=== PATIENT | female | born 1965 | race Caucasian/White ===

== ENCOUNTER 2016-11-09 04:58 | Inpatient (IN) | payer OTHER ==
[2016-10-24 13:02] VITALS: BMI 41.0
[2016-10-24 13:13] LABS: BASO % 0.8 %; BASO ABS # 0.05 K/uL (0-0.2); COMPLETE YES; EOS % 2.3 %; HEMATOCRIT 40.5 % (37-47); IG% 0.3 %; LYMPH % 32.8 %; LYMPH ABS # 2.15 K/uL (1.2-3.4); MEAN CELL VOLUME 86.9 fL (80-100); MEAN CORPUSCULAR HEMOGLOBIN 29.2 pg (25-34); MEAN CORPUSCULAR HGB CONC 33.6 g/dl (32-36); MEAN PLATELET VOLUME 12.7 fL (7.4-10.4); MONO % 5.2 %; NEUT % 58.6 %; PLATELET COUNT 222 K/uL (130-400); RED BLOOD COUNT 4.66 M/uL (4.2-5.4); WHITE BLOOD COUNT 6.55 K/uL (4.8-10.8)
[2016-10-24 13:26] LABS: INR 0.9 (0.9-1.1); PARTIAL THROMBOPLASTIN RATIO 1.1; PROTHROMBIN TIME (PATIENT) 10.1 SECONDS (9.0-12.0)
[2016-10-24 13:29] LABS: ESTIMATED AVERAGE GLUCOSE 117 mg/dl; HA1C FLAG Normal (Normal)
--- NOTE | 2016-10-24 13:36 | PAT Medication Instructions ---
Service Date Oct 24, 2016. Current Home Medication List Ascorbic Acid (Vitamin C), 1 TAB PO QAM Cholecalciferol (Vitamin D3), 1 TAB PO QAM Cyanocobalamin (Vitamin B12), 1 DROP SL QAM Ibuprofen (Motrin), 400 MG PO Q6H PRN for Pain Interferon Beta-1A (Avonex), 1 DOSE SQ MONDAY Tocopheryl Acet,Dl-Alpha (Vitamin E), 1 CAP PO QAM Medication Instructions For Your Scheduled Surgery - Continue as directed: Interferon Beta-1A (Avonex), 1 DOSE SQ MONDAY - Hold the following medications 2 weeks prior to surgery: Tocopheryl Acet,Dl-Alpha (Vitamin E), 1 CAP PO QAM - Hold the following medications 1 week prior to surgery per surgeon's instructions: Ibuprofen (Motrin), 400 MG PO Q6H PRN for Pain - Hold the following medications the morning of surgery: Ascorbic Acid (Vitamin C), 1 TAB PO QAM Cholecalciferol (Vitamin D3), 1 TAB PO QAM Cyanocobalamin (Vitamin B12), 1 DROP SL QAM *Nothing to eat or drink after midnight* If you have any questions please call us at [phone] (Alicia Bryan PA-C) or [phone] or [phone]
[2016-10-24 13:41] LABS: BUN/CREATININE RATIO 27.1 (10-20); CALCIUM 8.7 mg/dl (8.5-10.1); CREATININE 0.68 mg/dl (0.60-1.20); POTASSIUM 3.9 mmol/L (3.5-5.1)
--- NOTE | 2016-10-24 14:17 | DIAGNOSTIC IMAGING REPORT ---
CHEST 2 VIEWS ROUTINE CLINICAL HISTORY: Preoperative evaluation. COMPARISON STUDY: No previous studies for comparison. FINDINGS: Lung volumes are normal. No pneumothorax or pleural effusion is present. Minimal left basilar opacity likely reflects atelectasis or epicardial fat pad. Cardiac size is normal. Mediastinal contours are normal. IMPRESSION: No acute cardiopulmonary findings. Electronically signed by: Ramiro Brink M.D. 10/24/2016 2:15 PM Dictated Date/Time: 10/24/2016 2:14 PM
--- NOTE | 2016-11-08 13:44 | HISTORY & PHYSICAL EXAMINATION ---
DATE OF ADMISSION: 11/09/2016 CHIEF COMPLAINT: Chronic right knee pain. HISTORY OF PRESENT ILLNESS: This is a 51-year-old female patient of Dr. Diamond who is complaining of chronic right knee pain, longstanding, now progressively getting worse. She has been diagnosed with end-stage osteoarthritis and has failed conservative treatment including anti-inflammatories and the use of a walker. The patient has increased pain with weightbearing activities and her pain does interfere with her activities of daily living. PAST MEDICAL HISTORY: She has snoring with no diagnosis of sleep apnea, carpal tunnel, multiple sclerosis, osteoarthritis, spine problems, neck problems, sciatica, obesity and a recent diagnosis of urinary tract infection. SOCIAL HISTORY: Nonsmoker, nondrinker. SURGICAL HISTORY: Right knee surgery x2, hernia surgery, tubal ligation, tonsillectomy. FAMILY HISTORY: Noncontributory. REVIEW OF SYSTEMS: The patient complains of chronic right knee pain, otherwise denies any shortness of breath, chest pain, nausea, vomiting or any other joint complaints. MEDICATIONS: Avonex with albumin 30 mcg IM injections every week, vitamin C 500 mg daily, vitamin B12 sublingual daily, vitamin D3 daily, vitamin E daily, ibuprofen 800 mg b.i.d. Cipro 500mg BID. ALLERGIES: INCLUDES SULFA. PHYSICAL EXAMINATION: GENERAL: Well-developed, well-nourished 51-year-old female patient of Dr. Diamond. She is alert and oriented x3 and pleasant. HEENT: Normocephalic, atraumatic. Extraocular motions are intact. Pupils are equal and reactive to light. HEART: Regular rate and rhythm, no murmurs. LUNGS: Clear. ABDOMEN: Soft and nontender. Bowel sounds present. EXTREMITIES: Right knee reveals a valgus deformity. She has lateral joint line tenderness and a limited range of motion of 0-110 degrees. She has a mild effusion. NEUROLOGIC: Neurovascularly, she is intact in her right lower extremity with 5/5 strength. DIAGNOSES: Right knee end-stage osteoarthritis, carpal tunnel syndrome, multiple sclerosis, osteoarthritis, spine problems, neck problems, sciatica, obesity. PLAN: The patient was advised of her diagnoses. Indications, risks, benefits, and postop course have all been reviewed. The patient wishes to proceed with a right total knee arthroplasty. Necessary consent form, preoperative testing and clearances will be obtained. LUCAS
[2016-11-09] VITALS (10 sets, daily range): BP systolic 96–143; BP diastolic 62–82; PULSE 66–82; TEMP 36.3–36.7; O2SAT 93–100; Ht 160 cm; Wt 107.2 kg
[~2016-11-09] VITALS: Ht 160 cm; Wt 107.2 kg
[~2016-11-09 04:58] MED LIST: ASCA500 PO; CHOL1000 PO; CYAN1DRO SL; IBUP-1459 PO; INTE1KIT3 SQ; VTME100 PO
[2016-11-09] MEDS ORDERED: CIPR1TAB11 PO (05:55)
[2016-11-09] MEDS ORDERED: DEXAMETHASONE 4 MG TAB PO SCH (06:00)
[2016-11-09] MEDS ORDERED: ACETAMINOPHEN 500 MG TAB PO SCH (06:00)
[2016-11-09] MEDS ORDERED: CEFAZOLIN 2000 MG/60 ML D5W 60 ML IV SCH (06:00)
[2016-11-09] MEDS ORDERED: METOCLOPRAMIDE HCL 10 MG TAB PO SCH (06:00)
[2016-11-09] MEDS ORDERED: LACTATED RINGER'S 1000ML IV SCH (06:00)
[2016-11-09] MEDS ORDERED: ROPIVACAINE 5MG/ML 30 ML 150 MG, BUPIVACAINE/EPINEPHR 0.5% MPF 30 ML, KETOROLAC TROMETH... INFIL SCH ×7 (06:00)
[2016-11-09] MEDS ORDERED: FAMOTIDINE 20 MG TAB PO SCH (06:00)
[2016-11-09] MEDS ORDERED: GABAPENTIN 300 MG CAP PO SCH (06:00)
[2016-11-09] MEDS ORDERED: FENTANYL CITRATE INJ 50 MCG/1 ML 2 ML VIAL ONE ×4 (06:25→09:55)
[2016-11-09] MEDS ORDERED: MIDAZOLAM HCL 1 MG/ML 2ML VIAL ONE (06:25)
[2016-11-09] MEDS ORDERED: PROPOFOL IV EMULSION 10 MG/ML 20 ML VIAL IV ONE ×2 (06:25→08:04)
[2016-11-09] MEDS ORDERED: BUPIVACAINE 0.5 % 5 MG/1 ML PF 10ML VIAL ONE ×2 (06:31→06:51)
[2016-11-09] MEDS ORDERED: BUPIVACAINE 0.25% 30 ML VIAL ONE (06:52)
[2016-11-09] MEDS ORDERED: ORTHO JOINT ANESTHETIC ONE (06:56)
--- NOTE | 2016-11-09 07:10 | History & Physical Bridge Note ---
H&P Re-Evaluation Bridge Note: I have examined the patient, reviewed the History & Physical and in the interval since the performance of the History & Physical I have noted the following changes of clinical significance: No changes noted
[2016-11-09] MEDS ORDERED: DEXAMETHASONE SOD INJ 4 MG/ML VIAL ONE (07:28)
[2016-11-09] MEDS ORDERED: ONDANSETRON INJ 2 MG/ML 2 ML VIAL ONE (07:28)
[2016-11-09] MEDS ORDERED: HYDROmorphone INJ 2 MG/ML SYR/VIAL ONE (07:29)
[2016-11-09] MEDS ORDERED: ALBUTEROL HFA INHALER 8.5 GM INH ONE (08:36)
[2016-11-09] MEDS ORDERED: POVIDONE-IODINE OP SOLN 30 ML BTL TOP ONE (08:44)
[2016-11-09] MEDS ORDERED: BACITRACIN 50000 UNIT VIAL IR ONE (08:44)
--- NOTE | 2016-11-09 09:02 | [facility] Operative Report ---
Operative Report Operative Date Nov 09, 2016. Pre-Operative Diagnosis Right Knee End Stage Osteoarthritis Post-Operative Diagnosis same Procedure(s) Performed right total knee replacement Surgeon Dr. Jake Diamond Plate Stacker Hand Surgeon(s) Narayan Murray PA-C Estimated Blood Loss 5ml Findings tricompartmental djd s/p meniscectomies and grade 4 lateral Specimens A. Right Knee Bone and Tissue Drains 2 hemovac Anesthesia general orthomix Complication(s) None Disposition Recovery Room / PACU Indications end stage oa I attest to the content of the Intraoperative Record and any orders documented therein. Any exceptions are noted below.
[2016-11-09] MEDS ORDERED: ZOLPIDEM TARTRATE 5 MG TAB PO PRN (09:30)
[2016-11-09] MEDS ORDERED: TRAMADOL HCL 50 MG TAB PO PRN (09:30)
[2016-11-09] MEDS ORDERED: MAGNESIUM HYDROXIDE SUSP 30 ML UDC PO PRN (09:30)
[2016-11-09] MEDS ORDERED: EpHEDrine SULFATE INJ 50 MG/ML AMP IV PRN (09:30)
[2016-11-09] MEDS ORDERED: MoRPHine SULFATE 10 MG/ML CARP/VIAL IV PRN (09:30)
[2016-11-09] MEDS ORDERED: FENTANYL CITRATE INJ 50 MCG/1 ML 2 ML VIAL IV PRN (09:30)
[2016-11-09] MEDS ORDERED: ONDANSETRON INJ 2 MG/ML 2 ML VIAL IV PRN ×2 (09:30)
[2016-11-09] MEDS ORDERED: BISACODYL 10 MG SUPP PR PRN (09:30)
[2016-11-09] MEDS ORDERED: ATROPINE SULFATE 0.1 MG/ML 5ML SYR IV PRN (09:30)
[2016-11-09] MEDS ORDERED: SOD PHOSPHATE/SOD BIPHOSPHATE ENEMA 132 ML BTL PR PRN (09:30)
[2016-11-09] MEDS ORDERED: MoRPHine SULFATE 2 MG/ML CARP IV PRN (09:30)
--- NOTE | 2016-11-09 09:52 | DIAGNOSTIC IMAGING REPORT ---
RIGHT KNEE 1 OR 2 VIEWS ROUTINE CLINICAL HISTORY: Arthroplasty. COMPARISON: None FINDINGS: Alignment of the total right knee arthroplasty is anatomic. There is no fracture or unexpected radiopaque foreign body. Drains and skin chani are present. IMPRESSION: Expected findings following total right knee arthroplasty. Electronically signed by: Ramiro Brink M.D. 11/09/2016 9:50 AM Dictated Date/Time: 11/09/2016 9:50 AM
--- NOTE | 2016-11-09 10:12 | Anesthesiology Progress Note ---
Anesthesia Post Op Note Date & Time Nov 09, 2016 at 10:11 Vital Signs Pain Intensity: 2 Vital Signs Past 12 Hours Date Time Temp Pulse Resp B/P Pulse Ox O2 Delivery O2 Flow Rate FiO2 11/09/16 10:01 36.6 17 131/78 99 Mask 10 11/09/16 09:54 77 14 99 11/09/16 09:54 74 14 11/09/16 09:53 129/83 11/09/16 09:49 80 14 97 11/09/16 09:49 80 14 11/09/16 09:48 130/83 11/09/16 09:44 84 15 11/09/16 09:44 85 15 100 11/09/16 09:43 146/84 11/09/16 09:39 78 14 100 11/09/16 09:39 77 14 11/09/16 09:38 152/78 11/09/16 09:35 73 14 100 11/09/16 09:35 73 14 11/09/16 09:33 146/81 11/09/16 09:30 86 17 100 11/09/16 09:30 84 17 11/09/16 09:28 157/95 11/09/16 09:25 88 17 11/09/16 09:25 87 17 100 11/09/16 09:25 36.6 91 16 149/94 97 Mask 10 11/09/16 06:19 36.3 71 20 143/69 100 Room Air Notes Mental Status: alert / awake / arousable, participated in evaluation Pt Amnestic to Procedure: Yes Nausea / Vomiting: adequately controlled Pain: adequately controlled Airway Patency, RR, SpO2: stable & adequate BP & HR: stable & adequate Hydration State: stable & adequate Anesthetic Complications: no major complications apparent
[2016-11-09] MEDS: TRANEXAMIC ACID INJ 1,000 MG in SODIUM CHLORIDE 0.9% 100ML 100 ML IV SCH ×2 (11:44→11:45)
[2016-11-09] MEDS ORDERED: MoRPHine SULFATE 4 MG/ML 1 ML CARP\\VIAL ONE (11:47)
[2016-11-09] MEDS: D5W AND 1/2NSS + 20MEQ KCL 1,000 ML IV SCH ×2 (12:16→22:36)
[2016-11-09] MEDS ORDERED: MoRPHine SULFATE 4 MG/ML 1 ML CARP\\VIAL IV PRN (12:30)
[2016-11-09] MEDS ORDERED: CYANOCOBALAMIN SCH (13:00)
--- NOTE | 2016-11-09 13:33 | Medical Consult ---
History General Date of Service: Nov 09, 2016. Stated Complaint: Right Knee Degenerative Joint Disease HPI The patient is a 51 year old female who presents to [facility] with complaints of Right Knee pain . The patient's primary care provider is Mariana Grimaldo. underwent elective rt knee surgery today 11/09/16 pt's past medical hx significant for Multiple sclerosis , Diagnosed approx 2 yrs back , follow with [facility] Neurology Dr Angelia Buckner receives Interferon Beta A1 ( Avenox ) once a week IM has been having long standing pain in rt knee affecting her ADL's had pre op eval done by her Family Physician on 10/26/16 was found to be cleared /medically stable for surgery pt seen at post op in room 353, a bit groggy -got IV morphine earlier for knee pain no complain of SOB or chest discomfort , no fever or chills pt denies of any urinary symptom of dysuria /has chronic incontinence for MS pain in rt knee post op site resolved after IV Morphine Historian: patient Quality of Pain: dull Review of Systems Constitutional: reports: as stated in HPI Cardiovascular: denies: as stated in HPI, chest pain, chest pressure, chest tightness, diaphoresis, edema, intermittent claudication, no symptoms, orthopnea , other, palpitations, syncope Respiratory: denies: MARROQUIN, PND, as stated in HPI, cough, cyanosis, hemoptysis, no symptoms, orthopnea, other, shortness of breath, sputum production, stridor, wheezing Gastrointestinal: denies: abdominal pain, anorexia, appetite changes, as stated in HPI, belching, constipation, diarrhea, flatulence, food intolerance, hematemesis, hematochezia, hemorrhoids, jaundice, nausea, no symptoms, other, stool changes, vomiting Genitourinary - Female: reports: urinary incontinence (chonic ) Musculoskeletal: reports: other (rt knee pain s/p rt TKA ) Neurologic: reports: other (multiple screlosis ) All Other Symptoms All Other Systems: Reviewed and Negative Past Medical History Past Medical History: MULTIPLE SCLEROSIS CHRONIC URINARY INCONTINENCE DUE TO ABOVE DYSLIPIDEMIA Past Surgical History: COLONOSCOPY, DIAGNOSTIC (RECTUM) N/A 12/14/2015 normal, 10 yr recall, COLONOSCOPY FLEXIBLE PROXIMAL DIAGNOSTIC performed by Anupam Brar MD at [facility]; CHOLECYSTECTOMY 1995 LIGATE/CUT OVIDUCT(S) 1986 Tubal Ligation REMOVAL OF TONSILS, AGE 12+ 1992 Tonsils Removal,10+ Y/O REPAIR OF KNEE CARTILAGE age 7 and 11 URETHRAL DILAT W/SUPP/INSTILL,FEMALE, MD/ age 12 Family History Heart Disorder Mother Murmur Heart Disorder Paternal Grandfather [place] 60's Hypertension Father Hypertension Maternal Grandmother from CVA at 83 Hypertension Mother Neurological Disorder Maternal Grandfather Alzheimers Parent: Hypertension, Grandparent: Heart Disease Social History Hx Tobacco Use In Past Year?: No Smoking Status: Never Smoker Alcohol: never Drug Use: none Marital status: Housing status: lives with family 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 pt 'prefers not to receive sulfa drugs' Current Medications Reported Home Medications Medications Dose Route/Sig Max Daily Dose Days Date Category Cipro (Ciprofloxacin) 250 Mg Tab 500 Mg PO BID 7 11/09/16 Reported Motrin (Ibuprofen) 400 Mg Tab 400 Mg PO Q6H PRN 10/24/16 Reported Avonex (Interferon Beta-1A) 30 Mcg/Vial Kit 1 Dose SQ Monday10/24/16 Reported Vitamin B12 (Cyanocobalamin) 3,000 Mcg/Ml Carlos Enrique 1 Drop SL QAM 10/24/16 Reported Vitamin E (Tocopheryl Acet,Dl-Alpha) 100 Interunit Cap 1 Cap PO QAM 10/24/16 Reported Vitamin D3 (Cholecalciferol) 1,000 Unit Tab 1 Tab PO QAM 90 10/24/16 Reported Vitamin C (Ascorbic Acid) 500 Mg Tab 1 Tab PO QAM 10/24/16 Reported Physical Physical Exam Vital Signs: Date Time Temp Pulse Resp B/P Pulse Ox O2 Delivery O2 Flow Rate FiO2 11/09/16 13:05 82 16 96/62 94 Nasal Cannula 2.0 11/09/16 12:05 74 16 112/67 99 Nasal Cannula 2.0 11/09/16 11:35 68 16 110/72 99 Nasal Cannula 2.0 11/09/16 11:05 Nasal Cannula 2.0 11/09/16 11:05 Nasal Cannula 2.0 11/09/16 11:05 36.3 79 16 118/82 95 Nasal Cannula 2.0 11/09/16 10:43 127/78 11/09/16 10:41 73 19 98 11/09/16 10:41 73 19 11/09/16 10:38 134/80 11/09/16 10:36 79 16 11/09/16 10:36 80 16 98 11/09/16 10:35 79 14 97 11/09/16 10:35 80 14 11/09/16 10:33 128/82 11/09/16 10:30 77 14 99 11/09/16 10:30 78 14 11/09/16 10:28 121/99 11/09/16 10:25 86 24 11/09/16 10:25 86 24 98 11/09/16 10:23 130/86 11/09/16 10:20 72 17 11/09/16 10:20 72 17 99 11/09/16 10:18 127/77 11/09/16 10:15 74 17 98 11/09/16 10:15 76 17 11/09/16 10:13 135/79 11/09/16 10:10 78 14 98 11/09/16 10:10 77 14 11/09/16 10:08 132/79 11/09/16 10:05 85 20 99 11/09/16 10:05 85 20 11/09/16 10:03 131/78 11/09/16 10:01 36.6 17 131/78 99 Mask 10 11/09/16 10:00 77 15 98 11/09/16 10:00 77 15 11/09/16 09:58 130/72 11/09/16 09:55 78 13 11/09/16 09:55 77 13 96 11/09/16 09:54 77 14 99 11/09/16 09:54 74 14 11/09/16 09:53 129/83 11/09/16 09:49 80 14 97 11/09/16 09:49 80 14 11/09/16 09:48 130/83 11/09/16 09:44 84 15 11/09/16 09:44 85 15 100 11/09/16 09:43 146/84 11/09/16 09:39 78 14 100 11/09/16 09:39 77 14 1/25/17 09:38 152/78 11/09/16 09:35 73 14 100 11/09/16 09:35 73 14 11/09/16 09:33 146/81 11/09/16 09:30 86 17 100 11/09/16 09:30 84 17 11/09/16 09:28 157/95 11/09/16 09:25 88 17 11/09/16 09:25 87 17 100 11/09/16 09:25 36.6 91 16 149/94 97 Mask 10 11/09/16 06:19 36.3 71 20 143/69 100 Room Air General Appearance: WELL-APPEARING, NO APPARENT DISTRESS Head: NORMOCEPHALIC, ATRAUMATIC Eyes: PERRLA, EOMI, SCLERAE NORMAL Neck: SUPPLE, NO THYROMEGALY Respiratory: BREATH SOUNDS NORMAL, CLEAR TO AUSCULTATION, NO RESPIRATORY DISTRESS Cardiovasular: REGULAR RATE/RHYTHM, NORMAL S1S2, NO MURMUR Abdomen: NON TENDER, NORMAL BOWEL SOUNDS Back: NORMAL INSPECTION Lower Extremities: other (S/P RT KNEE Tka , surgical bandage present, drain - with serosanguoinous drainage ) Neuro: ALERT, ORIENTED x 3 Psychiatric: NORMAL AFFECT Diagnostics Labs Results Past 24 Hours Test 11/09/16 13:03 Range/Units Diagnostic Radiology RIGHT KNEE 1 OR 2 VIEWS ROUTINE CLINICAL HISTORY: Arthroplasty. COMPARISON: None FINDINGS: Alignment of the total right knee arthroplasty is anatomic. There is no fracture or unexpected radiopaque foreign body. Drains and skin chani are present. IMPRESSION: Expected findings following total right knee arthroplasty. Impression Assessment and Plan 51 yo F with hx of MS , dyslipidemia -underwent rt TKA of chronic DJD , intractable pain RT TKA : -s/p elective rt TKA for chronic DJD POD # 0 pt recovering well post op rt knee post op pain appears to be well controlled with current pain regimen cont PT/OT as per ortho CBC , PRP should be checked in AM to eval for acute blood loss anemia , dehydration due to surgical vol loss ordered already RECENT UTI WITH KLEBSIELLA urine culture on [facility] as per Pre op on 10/31/16 grew Klebsiella Pneumoniae sensitive to Cipro Resistant to Amoxicillin REPORT STATUS 10/31/2016 FINAL Final ORGANISM KLEBSIELLA PNEUMONIAE (A) Final Culture & Susceptibility Antibiotic Organism Organism Organism Klebsiella pneumoniae AMPICILLIN RESISTANT R Final AMPICILLIN/SULBACTAM SUSCEPTIBLE S Final CEFEPIME SUSCEPTIBLE S Final CEFTRIAXONE SUSCEPTIBLE S Final CIPROFLOXACIN SUSCEPTIBLE S Final GENTAMICIN SUSCEPTIBLE S Final NITROFURANTOIN INTERMEDIATE I Final PIPERACILLIN TAZOBACTAM SUSCEPTIBLE S Final TRIMETH-SULFAMETHOXAZOLE SUSCEPTIBLE S Final pt started on Treatment with Cipro 500 mg PO BID started form yesterday has chronic urinary incontinence for MS given lack for other symptoms , no fever , white count would treat as uncomplicated UTI treat with PO cipro for 5 -7 days -already ordered repeat UA and culture if indicated ordered MULTIPLE SCLEROSIS follows with Neurology on Avenox IM weekly no acute issue cont out pt Neurology follow up DYSLIPIDEMIA : diet controlled follows with PCP FULL CODE Thank you for allowing us to participate in care will follow the pt during her hospital course Dr Morris will follow the pt from tomorrow 11/10/16 Admit To Med/Surg Code Status Level 1 - Full Code
[2016-11-09] MEDS: CYANOCOBALAMIN SCH ×2 (16:00→22:16)
[2016-11-09] MEDS: ACETAMINOPHEN 500 MG TAB PO SCH ×2 (16:03→23:55)
[2016-11-09] MEDS: CEFAZOLIN IV 2,000 MG in DEXTROSE 5% 50ML 50 ML IV SCH (18:20)
[2016-11-09] MEDS: RIVAROXABAN 10 MG TAB PO SCH (18:20)
[2016-11-09 18:48] LABS: URINE APPEARANCE CLEAR (CLEAR); URINE BILIRUBIN NEG (NEG); URINE COLOR YELLOW; URINE EPITHELIAL CELL AUTO >30 /lpf (0-5); URINE NITRITE POS (NEG); URINE SPECIFIC GRAVITY 1.014 (1.000-1.030); UROBILINOGEN NEG (NEG); ZZUR CULT IF INDIC CLEAN CATCH NO
[2016-11-09 18:51] LABS: MANUAL MICROSCOPIC REQUIRED? NO; REVIEW REQ? NO
[2016-11-09] MEDS: OXYCODONE HCL IR 5 MG TAB (IMMEDIATE RELEASE) PO PRN (19:54)
[2016-11-09] MEDS: CIPROFLOXACIN 250 MG TAB PO SCH (20:35)
[2016-11-09] MEDS: DOCUSATE SODIUM 100 MG CAP PO SCH (20:35)
[2016-11-09] MEDS: OXYCODONE HCL 10 MG TABCR (OXYCONTIN) PO SCH (20:37)
--- NOTE | 2016-11-09 22:47 | OPERATIVE REPORT ---
DATE OF OPERATION: 11/09/2016 INDICATION FOR PROCEDURE: The patient is a 51-year-old female with chronic progressive right knee osteoarthritis. She has had previous open meniscectomy procedures in the past, years ago. She has had progressive osteoarthritis and pain and dysfunction, now presents for knee replacement surgery. PREOPERATIVE DIAGNOSIS: End-stage osteoarthritis, right knee. POSTOPERATIVE DIAGNOSIS: Same. PROCEDURE: Right total knee arthroplasty. SURGEON: Dr. Diamond. BOOTS AND SHOES SUPERVISOR: Narayan Murray PA-C. ANESTHESIA: General and Orthomix. OPERATIVE PROCEDURE: The patient was taken to the operating room, had general anesthetic placed, and then she had a pneumatic tourniquet placed about her right upper thigh and her right lower extremity was prepped and draped with ChloraPrep in usual sterile fashion. Knee exam demonstrates she had 0-120 degrees range of motion and she had a little bit more of a valgus knee and had crepitation with range of motion. Her radiographs demonstrated that she had tricompartmental DJD, most severe in the lateral compartment where she is bone on bone. The leg was elevated, exsanguinated with Esmarch bandage. Pneumatic tourniquet was raised to 300 mmHg. Anterior incision was made across the knee. Skin was incised sharply in a longitudinal fashion. The subcutaneous tissues were incised down to the fascia, subcutaneous bleeders were cauterized. Subcutaneous flaps were elevated. An incision was made in the medial retinaculum and extended up in the mid third of the quadriceps tendon and extended down to the medial tibial tubercle. Intraarticular findings demonstrated that the patient had tricompartmental DJD. Most of her wear was in the lateral compartment where she was clearly bone on bone. She had grade 3 changes throughout the other compartments and tricompartmental osteophytes. She had previous medial and lateral meniscectomies. I used the Willard \T\ Nephew Journey 2.0 total knee arthroplasty system using [employer] MRI templating. Attention was first taken to the exposure which required excision of the infrapatellar fat pad, excision of any remnants of the menisci which were small as they previously excised, the cruciate ligaments were excised, and the fat pad over the anterior femur for placement of the component in that area was resected. Lateral synovial bands were released. We did not have to do any significant ligamentous releases due to balanced ligaments. The custom femoral cutting block was pinned in position and distal femoral cut was made. The 5-in-1 cutting block was used for a size 5 femur. The anterior, posterior and chamfer cuts were made. The knee was then extended and subperiosteal peel lateral release was performed around the patella. Patella cut was made using freehand cut technique and patella width was reproduced using a 38 mm patellar component and the drill holes were made and the excess lateral facet was beveled off to prevent any impingement. The tibia was then exposed. The custom tibial cutting block was pinned in position and the proximal tibia cut was made. Lamina geothermal heat pump machinist was used to ensure ligamentous balance. All osteophytes were removed from the posterior condyles. At this time, the tibia was subluxed again and the 5 tibial baseplate was pinned in position, externally rotated to line up with the tibial tubercle. The punch for the stem was used. Then, the 5 femoral trial was inserted, centered, and the notch cutting devices were used. A collet was placed. A 15 poly insert gave balanced ligaments through full range of motion and patella tracked centrally. The trials were removed. The Orthomix anesthetic cocktail was injected per protocol. The knee was copiously irrigated with pulsatile lavage antibiotic solution and bacitracin. Final components were cemented with Simplex G cement. Final components were the 5 Oxinium posterior stabilized Willard \T\ Nephew Journey 2.0 femur, 5 tibial baseplate, 15 posterior stabilized poly insert and the 38 patella. While cement cured, the Betadine soak was used per protocol. Then, 2 drains were brought out laterally. The knee was copiously irrigated with antibiotic solution and bacitracin. The quadriceps tendon and medial retinaculum were closed with interrupted [id number] #1 Vicryl sutures. The knee was taken through range of motion and repair was secure. The subcutaneous tissue was then closed with interrupted 2-0 Vicryl and skin was closed with chani. Occlusive dressing was placed and the patient tolerated the procedure well. Narayan Murray PA-C, was my first breaker feeder, he functioned as first breaker feeder for the entire procedure. He assisted in soft tissue retraction, instrument management, leg positioning as needed, and he performed the fascial, subcutaneous and skin closure, and will participate in postop care of the patient. I attest to the content of the Intraoperative Record and any orders documented therein. Any exceptio ns are noted below.
[2016-11-10] MEDS: CEFAZOLIN IV 2,000 MG in DEXTROSE 5% 50ML 50 ML IV SCH (01:31)
[2016-11-10 04:35] VITALS: BP 107/72; PULSE 65; TEMP 36.6; O2SAT 97
[2016-11-10 06:01] LABS: HEMATOCRIT 33.5 % (37-47); MEAN CELL VOLUME 87.7 fL (80-100); MEAN CORPUSCULAR HEMOGLOBIN 29.3 pg (25-34); MEAN CORPUSCULAR HGB CONC 33.4 g/dl (32-36); MEAN PLATELET VOLUME 12.3 fL (7.4-10.4); PLATELET COUNT 250 K/uL (130-400); RED BLOOD COUNT 3.82 M/uL (4.2-5.4); WHITE BLOOD COUNT 16.94 K/uL (4.8-10.8)
[2016-11-10 06:27] LABS: BUN/CREATININE RATIO 14.3 (10-20); CALCIUM 8.5 mg/dl (8.5-10.1); POTASSIUM 4.2 mmol/L (3.5-5.1)
[2016-11-10 07:20] VITALS: BP 96/66; PULSE 57; TEMP 36.6; O2SAT 98
[2016-11-10] MEDS: CYANOCOBALAMIN SCH ×3 (07:50→22:54)
[2016-11-10] MEDS: D5W AND 1/2NSS + 20MEQ KCL 1,000 ML IV SCH (07:52)
[2016-11-10] MEDS: ACETAMINOPHEN 500 MG TAB PO SCH ×2 (07:52→15:37)
--- NOTE | 2016-11-10 08:00 | Orthopedic Progress Note ---
Orthopedic Progress Note Date of Service Nov 10, 2016. Subjective Post OP Day: 1 Reports: feeling well, pain controlled w PO medications, Denies: SOB, calf pain , chest pain, complaints, light headedness, nausea / vomiting Objective calves soft nontender, N/V intact, capillary refill less than 2 sec., dressing C /D/I, A&O x3, toes mobile Date Time Temp Pulse Resp B/P Pulse Ox O2 Delivery O2 Flow Rate FiO2 11/10/16 07:20 36.6 57 16 96/66 98 Room Air 11/10/16 04:35 36.6 65 16 107/72 97 Room Air 11/09/16 23:44 36.7 66 16 109/62 93 Room Air 11/09/16 23:00 93 Room Air 11/09/16 19:08 36.4 81 16 118/75 93 Room Air 11/09/16 15:34 36.5 79 16 98/62 96 Nasal Cannula 2.0 11/09/16 15:30 Nasal Cannula 2.0 11/09/16 14:05 79 16 131/73 96 Nasal Cannula 2.0 11/09/16 13:05 82 16 96/62 94 Nasal Cannula 2.0 11/09/16 12:05 74 16 112/67 99 Nasal Cannula 2.0 11/09/16 11:35 68 16 110/72 99 Nasal Cannula 2.0 11/09/16 11:05 Nasal Cannula 2.0 11/09/16 11:05 Nasal Cannula 2.0 11/09/16 11:05 36.3 79 16 118/82 95 Nasal Cannula 2.0 11/09/16 10:43 127/78 11/09/16 10:41 73 19 98 11/09/16 10:41 73 19 11/09/16 10:38 134/80 11/09/16 10:36 79 16 11/09/16 10:36 80 16 98 11/09/16 10:35 79 14 97 11/09/16 10:35 80 14 11/09/16 10:33 128/82 11/09/16 10:30 77 14 99 11/09/16 10:30 78 14 11/09/16 10:28 121/99 11/09/16 10:25 86 24 11/09/16 10:25 86 24 98 11/09/16 10:23 130/86 11/09/16 10:20 72 17 11/09/16 10:20 72 17 99 11/09/16 10:18 127/77 11/09/16 10:15 74 17 98 11/09/16 10:15 76 17 11/09/16 10:13 135/79 11/09/16 10:10 78 14 98 11/09/16 10:10 77 14 11/09/16 10:08 132/79 11/09/16 10:05 85 20 99 11/09/16 10:05 85 20 11/09/16 10:03 131/78 11/09/16 10:01 36.6 17 131/78 99 Mask 10 11/09/16 10:00 77 15 98 11/09/16 10:00 77 15 11/09/16 09:58 130/72 11/09/16 09:55 78 13 11/09/16 09:55 77 13 96 11/09/16 09:54 77 14 99 11/09/16 09:54 74 14 11/09/16 09:53 129/83 11/09/16 09:49 80 14 97 11/09/16 09:49 80 14 11/09/16 09:48 130/83 11/09/16 09:44 84 15 11/09/16 09:44 85 15 100 11/09/16 09:43 146/84 11/09/16 09:39 78 14 100 11/09/16 09:39 77 14 11/09/16 09:38 152/78 11/09/16 09:35 73 14 100 11/09/16 09:35 73 14 11/09/16 09:33 146/81 11/09/16 09:30 86 17 100 11/09/16 09:30 84 17 11/09/16 09:28 157/95 11/09/16 09:25 88 17 11/09/16 09:25 87 17 100 11/09/16 09:25 36.6 91 16 149/94 97 Mask 10 Laboratory Results 24 Hours: Test 11/10/16 05:00 Hematocrit 33.5 % Hemoglobin 11.2 g/dL Assessment & Plan Assessment: POD #1, Rt TKA Plan: PT/ OT DVT proph- Xarelto D/C planning- SNF, [place] As per medicine. Inhouse Planning Pain Management: Oxycontin, Morphine, PO Tylenol, Oxy IR DVT Prophylaxis: TEDs, SCDs, Xarelto Discharge Planning Discharge Planning: [facility] facility Pain Management: Oxycontin, PO Tylenol, Oxy IR DVT Prophylaxis: TEDs, Xarelto Therapy: Physical Therapy, Occupational Therapy
[2016-11-10] MEDS: DOCUSATE SODIUM 100 MG CAP PO SCH ×2 (09:06→21:04)
[2016-11-10] MEDS: MULTIVITAMIN TAB PO SCH (09:06)
[2016-11-10] MEDS: ASCORBIC ACID 500 MG TAB PO SCH (09:06)
[2016-11-10] MEDS: TOCOPHERYL, DL-ALPHA 100 INTERUNIT CAP PO SCH (09:06)
[2016-11-10] MEDS: PANTOprazole SOD 40 MG TAB PO SCH (09:06)
[2016-11-10] MEDS: OXYCODONE HCL IR 5 MG TAB (IMMEDIATE RELEASE) PO PRN ×2 (09:06→18:53)
[2016-11-10] MEDS: OXYCODONE HCL 10 MG TABCR (OXYCONTIN) PO SCH ×2 (09:07→21:04)
[2016-11-10] MEDS: CIPROFLOXACIN 250 MG TAB PO SCH ×2 (09:07→21:04)
[2016-11-10] MEDS: CHOLECALCIFEROL 1000 INTER.UNIT TAB PO SCH (09:07)
--- NOTE | 2016-11-10 10:24 | Anesthesiology Progress Note ---
Anesthesia Post Op Note Date & Time Nov 10, 2016 at 10:24 Vital Signs Pain Intensity: 4.0 Vital Signs Past 12 Hours Date Time Temp Pulse Resp B/P Pulse Ox O2 Delivery O2 Flow Rate FiO2 11/10/16 07:40 Room Air 11/10/16 07:20 36.6 57 16 96/66 98 Room Air 11/10/16 04:35 36.6 65 16 107/72 97 Room Air 11/09/16 23:44 36.7 66 16 109/62 93 Room Air 11/09/16 23:00 93 Room Air Notes Mental Status: alert / awake / arousable, participated in evaluation Pt Amnestic to Procedure: Yes Nausea / Vomiting: adequately controlled Pain: adequately controlled Airway Patency, RR, SpO2: stable & adequate BP & HR: stable & adequate Hydration State: stable & adequate Anesthetic Complications: no major complications apparent
[2016-11-10 10:57] VITALS: BP 110/61; PULSE 79; TEMP 36.7; O2SAT 99
[2016-11-10 11:29] VITALS: BP 96/78
[2016-11-10 15:29] VITALS: BP 112/65; PULSE 84; TEMP 36.9; O2SAT 99
[2016-11-10 15:40] VITALS: O2SAT 99
--- NOTE | 2016-11-10 18:33 | Progress Note ---
Medicine Progress Note Date & Time of Visit: Nov 10, 2016 at 18:22. Subjective Patient seen and examined. Pain tolerable with current pain regimen. Objective Last 8 Hrs Date Time Temp Pulse Resp B/P Pulse Ox O2 Delivery O2 Flow Rate FiO2 11/10/16 15:29 36.9 84 18 112/65 99 Room Air 11/10/16 10:57 36.7 79 16 110/61 99 Room Air Physical Exam: General-awake; alert; NAD Eyes-EOMI; no scleral icterus Neck-no stridor; trachea midline Lungs-CTA anteriorly Heart-RRR; no m/r/g Abdomen-soft; NTND; nBS Extremities-right leg dressing c/d/i Neuro-no gross focal deficits Laboratory Results: Last 24 Hours Test 11/10/16 05:00 White Blood Count 16.94 K/uL Red Blood Count 3.82 M/uL Hemoglobin 11.2 g/dL Hematocrit 33.5 % Mean Corpuscular Volume 87.7 fL Mean Corpuscular Hemoglobin 29.3 pg Mean Corpuscular Hemoglobin Concent 33.4 g/dl RDW Standard Deviation 43.7 fL RDW Coefficient of Variation 13.7 % Platelet Count 250 K/uL Mean Platelet Volume 12.3 fL Sodium Level 141 mmol/L Potassium Level 4.2 mmol/L Chloride Level 106 mmol/L Carbon Dioxide Level 27 mmol/L Anion Gap 8.0 mmol/L Blood Urea Nitrogen 14 mg/dl Creatinine 1.00 mg/dl Est Creatinine Clear Calc Drug Dose 76.3 ml/min Estimated GFR () 74.5 Estimated GFR (Non- 64.3 BUN/Creatinine Ratio 14.3 Random Glucose 119 mg/dl Calcium Level 8.5 mg/dl Assessment & Plan 51 yo F with hx of MS, dyslipidemia -underwent right TKA Right TKA : - performed by Dr. 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 Current Inpatient Medications: Current Inpatient Medications Medications (Trade) Dose Ordered Sig/Crystal Route Start Time Stop Time Status Last Admin Dose Admin Ascorbic Acid (Vitamin C Tab) 500 mg QAM PO 11/10/16 09:00 2/25/17 08:59 11/10/16 09:06 500 MG Cholecalciferol (Vitamin D Tab) 1,000 inter.unit QAM PO 11/10/16 09:00 12/10/16 08:59 11/10/16 09:07 1,000 INTER.UNIT Ciprofloxacin (Ciprofloxacin Tab) 500 mg BID PO 11/09/16 21:00 11/14/16 20:59 11/10/16 09:07 500 MG pw-Etajg-Ovewrknlok Acetate (Vitamin E Cap) 100 interunit QAM PO 11/10/16 09:00 12/10/16 08:59 11/10/16 09:06 100 INTERUNIT Oxycodone HCl (Roxicodone Immediate Rel Tab) 1 TABLET FOR PAIN RATING... Q4H PRN PO 11/09/16 09:30 11/23/16 09:29 11/10/16 09:06 10 MG Oxycodone HCl (Oxycontin Tab) 10 mg Q12 PO 11/09/16 21:00 11/23/16 20:59 11/10/16 09:07 10 MG Morphine Sulfate (MoRPHine SULFATE INJ) 2 mg Q2H PRN IV 11/09/16 09:30 11/23/16 09:29 Acetaminophen (Tylenol Tab) 1,000 mg Q8H PO 11/09/16 16:00 12/09/16 15:59 11/10/16 15:37 1,000 MG Magnesium Hydroxide (Milk Of Magnesia Susp) 30 ml Q6H PRN PO 11/09/16 09:30 12/09/16 09:29 Bisacodyl (Dulcolax Supp) 10 mg DAILY PRN MA 11/09/16 09:30 12/09/16 09:29 Sodium Biphosphate/ Sodium Phosphate (Fleet Enema) 132 ml DAILY PRN MA 11/09/16 09:30 12/09/16 09:29 Docusate Sodium (coLACE CAP) 100 mg BID PO 11/09/16 21:00 12/09/16 20:59 11/10/16 09:06 100 MG Diphenhydramine HCl (Benadryl Cap) 25 mg Q8H PRN PO 11/09/16 09:30 12/09/16 09:29 Zolpidem Tartrate (Ambien Tab) 5 mg HSZ PRN PO 11/09/16 09:30 12/09/16 09:29 Multivitamins (Multivitamin Tab) 1 tab QAM PO 11/10/16 09:00 12/10/16 08:59 11/10/16 09:06 1 TAB Ondansetron HCl (Zofran Inj) 4 mg Q6H PRN IV 11/09/16 09:30 12/09/16 09:29 Pantoprazole Sodium (Protonix Tab) 40 mg QAM PO 11/10/16 09:00 12/10/16 08:59 11/10/16 09:06 40 MG Tramadol HCl (Ultram Tab) 1 tablet for pain rating... Q4H PRN PO 11/09/16 09:30 12/09/16 09:29 11/10/16 15:38 100 MG Rivaroxaban (Xarelto Tab) 10 mg Q24H PO 11/09/16 18:30 11/21/16 18:29 11/09/16 18:20 10 MG Morphine Sulfate (MoRPHine SULFATE INJ) 4 mg Q2H PRN IV 11/09/16 12:30 11/23/16 12:29 Miscellaneous Information (Order Awaiting Action) 1 ea QS N/A 11/09/16 16:00 12/09/16 12:59
[2016-11-10] MEDS: RIVAROXABAN 10 MG TAB PO SCH (18:38)
[2016-11-11 00:20] VITALS: BP 108/72; PULSE 86; TEMP 37.1; O2SAT 96
[2016-11-11] MEDS: OXYCODONE HCL IR 5 MG TAB (IMMEDIATE RELEASE) PO PRN ×4 (00:42→13:47)
[2016-11-11] MEDS: ACETAMINOPHEN 500 MG TAB PO SCH ×2 (00:43→08:40)
[2016-11-11 07:00] VITALS: BP 108/63; PULSE 89; TEMP 36.8; O2SAT 95
[2016-11-11 07:11] LABS: HEMATOCRIT 28.5 % (37-47); MEAN CELL VOLUME 88.2 fL (80-100); MEAN CORPUSCULAR HEMOGLOBIN 29.4 pg (25-34); MEAN CORPUSCULAR HGB CONC 33.3 g/dl (32-36); MEAN PLATELET VOLUME 12.3 fL (7.4-10.4); PLATELET COUNT 208 K/uL (130-400); RED BLOOD COUNT 3.23 M/uL (4.2-5.4); WHITE BLOOD COUNT 8.36 K/uL (4.8-10.8)
[2016-11-11 07:50] LABS: BUN/CREATININE RATIO 21.6 (10-20); CREATININE 0.88 mg/dl (0.60-1.20); POTASSIUM 4.1 mmol/L (3.5-5.1)
[2016-11-11] MEDS: CYANOCOBALAMIN SCH (08:00)
[2016-11-11] MEDS: CIPROFLOXACIN 250 MG TAB PO SCH (08:39)
[2016-11-11] MEDS: ASCORBIC ACID 500 MG TAB PO SCH (08:39)
[2016-11-11] MEDS: CHOLECALCIFEROL 1000 INTER.UNIT TAB PO SCH (08:39)
[2016-11-11] MEDS: PANTOprazole SOD 40 MG TAB PO SCH (08:39)
[2016-11-11] MEDS: TOCOPHERYL, DL-ALPHA 100 INTERUNIT CAP PO SCH (08:39)
[2016-11-11] MEDS: MULTIVITAMIN TAB PO SCH (08:39)
[2016-11-11] MEDS: DOCUSATE SODIUM 100 MG CAP PO SCH (08:40)
[2016-11-11] MEDS: OXYCODONE HCL 10 MG TABCR (OXYCONTIN) PO SCH (08:46)
--- NOTE | 2016-11-11 09:58 | Orthopedic Progress Note ---
Orthopedic Progress Note Date of Service Nov 11, 2016. Subjective Post OP Day: 2 Reports: feeling well, pain controlled w PO medications, Denies: SOB, calf pain , chest pain, complaints, light headedness, nausea / vomiting Additional Notes: 50 FEET IN PT Objective calves soft nontender, N/V intact, capillary refill less than 2 sec., dressing C /D/I, A&O x3, toes mobile Date Time Temp Pulse Resp B/P Pulse Ox O2 Delivery O2 Flow Rate FiO2 11/11/16 07:00 36.8 89 20 108/63 95 Room Air 11/11/16 00:20 37.1 86 16 108/72 96 Room Air 11/11/16 00:00 Room Air 11/10/16 15:40 99 Room Air 11/10/16 15:29 36.9 84 18 112/65 99 Room Air 11/10/16 10:57 36.7 79 16 110/61 99 Room Air Laboratory Results 24 Hours: Test 11/11/16 06:21 Hematocrit 28.5 % Hemoglobin 9.5 g/dL Assessment & Plan Assessment: POD #2, Rt TKA Plan: PT/ OT DVT proph- Xarelto D/C planning- [facility], POSS TODAY IF ACCEPTED. As per medicine. Inhouse Planning Pain Management: Oxycontin, Morphine, PO Tylenol, Oxy IR DVT Prophylaxis: TEDs, SCDs, Xarelto Discharge Planning Discharge Planning[facility] Pain Management: Oxycontin, PO Tylenol, Oxy IR DVT Prophylaxis: TEDs, Xarelto Therapy: Physical Therapy, Occupational Therapy
[2016-11-11] MEDS ORDERED: AMB5 PO (10:05)
[2016-11-11] MEDS ORDERED: ASCA500 PO (10:05)
[2016-11-11] MEDS ORDERED: ACET-1138 PO (10:05)
[2016-11-11] MEDS ORDERED: CIPR1TAB11 PO (10:05)
[2016-11-11] MEDS ORDERED: OXYSR10 PO (10:05)
[2016-11-11] MEDS ORDERED: RXC5 PO (10:05)
[2016-11-11] MEDS ORDERED: CYAN1DRO SL (10:05)
[2016-11-11] MEDS ORDERED: VTME100 PO (10:05)
[2016-11-11] MEDS ORDERED: BND25X PO (10:05)
[2016-11-11] MEDS ORDERED: MULT-589 PO (10:05)
[2016-11-11] MEDS ORDERED: INTE1KIT3 SQ (10:05)
[2016-11-11] MEDS ORDERED: CHOL1000 PO (10:05)
[2016-11-11] MEDS ORDERED: XRL10 PO (10:05)
[2016-11-11] MEDS ORDERED: CLC100 PO (10:05)
[2016-11-11] MEDS ORDERED: MOMLX PO (10:05)
--- NOTE | 2016-11-11 10:08 | Discharge Instructions ---
Discharge Instructions Admission Reason for Admission: Right Knee Degenerative Joint Disease (Narayan Murray.,P.A.) Discharge Discharge Diagnosis / Problem: rIGHT tka (Narayan Murray.,P.A.) Discharge Goals Goal(s): Improve function (Narayan Murray.,P.A.) Goal(s): Decrease discomfort (Aleksandar Pérez,P.A.) Activity Recommendations Activity Level: Assistance Required . (Narayan Murray.,P.A.) Therapies: Physical Therapy (TKA Protocol), Occupational Therapy (ADL's and transfers) Weightbearing Status: Right weightbearing (as tolerated) (Aleksandar Pérez,P.A.) Additional Information Patient informed of condition: Yes Advance Directives: Yes DNR: No Level of Care: Acute Rehab Communicable Disease: No Prognosis: Improving (Narayan Murray.,P.A.) Mccain Catheter: No (Aleksandar Pérez,P.A.) Instructions / Follow-Up Instructions / Follow-Up ACTIVITY RECOMMENDATIONS: SELF CARE INSTRUCTIONS AFTER TOTAL KNEE REPLACEMENT A. You may need to continue a physical therapy program after discharge from the hospital. There are several options available to you. Your doctor will assist you in selecting the best one for you. 1. An out-patient facility 2 to 3 times a week for therapy or home therapy. 2. Continue working on all exercises taught to you in the hospital. Your goals should be to increase bending of your knee to 90 degrees and beyond and to fully straighten your knee. B. You may progress at your own pace from walking with a walker or crutches to a cane; then to no assistive devices. C. Make walking a part of your daily routine. Be up as much as comfortable with rest periods throughout the day. Rest with leg elevation is very important. Use the ice wrap frequently for the first 3-4 weeks. D. There are no restrictions on activities. You may ride in a car, shop, participate in accounts payable professional and all social activities. E. Wear the long elastic stockings (ANGELINA hose) 20 hours a day for 2 weeks after surgery. They can be removed several times a day for laundering and for a bath. F. You may shower, no tub baths until cleared by your doctor. SPECIAL CARE INSTRUCTIONS: VERY IMPORTANT TO READ AND REVIEW A. There are a few signs you need to watch for after you are home. Call [facility] if you notice any of the followin. Increased severe knee pain. Some pain is expected especially when you exercise. 2. Increased swelling in your leg or knee; pain or swelling of the calf muscle in either lower leg. 3. Any fluid drainage from the incision. 4. Shortness of breath or chest pain. B. Please call [facility] at if you have any concerns or questions about your operation or recovery. The doctor or his nurse will return your call promptly. C. You must take antibiotics before dental work, bladder, bowel or other surgery. Your doctor will provide you with a permanent care to carry describing this precaution. IMPORTANT: * REMEMBER TO TAKE ASPIRIN, 81 MG, TWICE DAILY FOR 4 WEEKS UNLESS OTHERWISE DIRECTED. THIS IS YOUR BLOOD THINNER. * HIGH RISK PATIENTS MAY BE PRESCRIBED A STRONGER BLOOD THINNER. THIS WILL BE PROVIDED AT DISCHARGE. * CALL IF INCREASED PAIN, REDNESS, DRAINAGE OR FEVER GREATER THAT 101. * WEAR ANGELINA HOSE 20 HOURS PER DAY FOR 2 WEEKS. * Silverlon- This is a large adhesive bandage that contains silver ions. This helps your incision heal by fighting off bacteria and protecting it from the outside environment. You are permitted to shower with this dressing. This will remain on your incision for 7 days and then should be removed. Some visible blood or drainage through the dressing window is normal. If there is significant drainage or leaking noted before the 7 days notify your doctor's office immediately. Once removed, keep incision clean and dry. If there is any drainage or redness noted, please call your surgeon. . FOLLOW UP VISIT: If appointment is not already scheduled: Please call [facility] to make a follow-up appointment for 2 weeks after your surgery at . (Aleksandar Pérez,P.A.) Current Hospital Diet Patient's current hospital diet: Regular Diet (Narayan Murray.,P.A.) Discharge Diet Recommended Diet: Regular Diet (Narayan Murray.,P.A.) Procedures Procedures Performed: Right Total Knee Arthroplasy Cemented (Narayan Murray.,P.A.) Pending Studies Studies pending at discharge: no (Narayan Murray.,P.A.) Physician Orders On Transfer Dressing Changes: See Silverlon dressing instructions above Vital Signs: Routine (Aleksandar Pérez,P.A.) Laboratory Results Hemoglobin A1c Test 10/24/16 12:44 Range/Units Estimated Average Glucose 117 mg/dl Hemoglobin A1c 5.7 H 4.5-5.6 % (Narayan Murray,P.A.) Medical Emergencies . Who to Call and When: Medical Emergencies: If at any time you feel your situation is an emergency, please call 911 immediately. . (Narayan Murray,P.A.) Non-Emergent Contact Non-Emergency issues call your: Primary Care Provider . (Narayan Murray,P.A.) Non-Emergency issues call your: Surgeon Call Non-Emergent contact if: temperature is above 101.5, your pain is not controlled, your pain is worsening, wound has increased drainage, wound has increased redness (Aleksandar Pérez,P.A.) . "Provider Documentation" section prepared by Narayan Murray. (Narayan Murray.,P.A.) Core Measure Problem Core Measures: VTE (Narayan Murray,P.A.) Core Measures: None (Aleksandar Pérez,P.A.) VTE Core Measures Date of VTE Diagnosis: Nov 11, 2016 Time of VTE Diagnosis: 10:08 Reason no anticoag overlap I/P: Treatment provided - N/A Reason no anticoag overlap @DC: Treatment provided - N/A (Narayan Murray,P.A.)
[2016-11-11 15:04] VITALS: BP 104/72; PULSE 88; TEMP 36.9; O2SAT 100
--- NOTE | 2016-11-27 14:45 | DISCHARGE SUMMARY ---
HISTORY OF PRESENT ILLNESS: This is a 51-year-old female patient of Dr. Diamond's, complaining of chronic right knee pain. She has failed conservative treatment and was diagnosed with end-stage osteoarthritis. The patient wished to proceed with an elective right total knee arthroplasty. PAST MEDICAL HISTORY: She has significant snoring with no sleep apnea diagnosis, carpal tunnel, multiple sclerosis, osteoarthritis, spine problems, neck problems, sciatica, obesity and a recent diagnosis of urinary tract infection, for which she is on Cipro. POSTOPERATIVE COURSE: The patient underwent a right total knee replacement on 11/09/2016. She was followed closely with DVT prophylaxis in the form of Xarelto, physical therapy, pain control and medical consultation. The patient did well postoperatively and was discharged on postoperative day #2 with no in-hospital complications. PHYSICAL EXAMINATION ON DISCHARGE: Right knee Silverlon dressing was clean, dry and intact. There was no redness or drainage. She had no calf tenderness. Negative Homans sign. Neurologically and neurovascularly she was intact in her right lower extremity. DIAGNOSES: Status post right total knee arthroplasty with a history of carpal tunnel, multiple sclerosis, osteoarthritis, spine problems, neck problems, sciatica, obesity and a recent diagnosis of urinary tract infection, for which she is currently on Cipro. PLAN: The patient was transferred to [facility] after discharge from the hospital. She will continue her preadmission medications as well as Xarelto for DVT prophylaxis. She will also be added pain control for her postoperative period. The patient will follow up with Dr. Diamond as scheduled as an outpatient.
== END 2016-11-11 16:00 | DRG 470 ==
LOC: ENRESERVTM → ENRESERVDT → C.ACU 04:58 → C.MSW 07:00
PROVIDERS: ADMIT Orthopaedic Surgery Sports Medicine; ATTEND Orthopaedic Surgery Sports Medicine
PROC: 0SRC0J9 Replacement of Right Knee Joint with Synthetic Substitute, Cemented, Open Approach (ICD-10-PCS; principal; 2016-11-09 07:15)
DX: M17.11 Unilateral primary osteoarthritis, right knee (principal); Z68.41 Body mass index [BMI] 40.0-44.9, adult; E66.9 Obesity, unspecified; Z98.51 Tubal ligation status; Z88.2 Allergy status to sulfonamides; Z79.899 Other long term (current) drug therapy; G35 Multiple sclerosis; M54.30 Sciatica, unspecified side; G56.00 Carpal tunnel syndrome, unspecified upper limb; E78.5 Hyperlipidemia, unspecified; Z90.49 Acquired absence of other specified parts of digestive tract; Z82.49 Family history of ischemic heart disease and other diseases of the circulatory system; Z82.0 Family history of epilepsy and other diseases of the nervous system; E86.0 Dehydration; R32 Unspecified urinary incontinence; Z87.440 Personal history of urinary (tract) infections